=== PATIENT | female | born 1960 | race Caucasian/White ===

== ENCOUNTER 2016-02-25 12:10 | Emergency (ER) | payer SELFPAY ==
[~2016-02-25 12:10] MED LIST: ONDA4TAB7 PO
[2016-02-25 12:15] VITALS: BP 129/65
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
[2016-02-25] MEDS ORDERED: ACETAMINOPHEN 325 MG TABLET. PO ONE (13:45)
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
[2016-02-25 13:55] LABS: BASO # 0.2 x10^3/uL (0.0-0.2); BASO % 3 % (0-3); EOS % 1 % (0-3); HEMATOCRIT 41.9 % (36.0-47.0); HEMOGLOBIN 13.8 g/dL (12.0-15.5); LYMPH # 2.9 x10^3/uL (1.0-4.8); LYMPH % 50 % (24-48); MEAN CORPUSCULAR HEMOGLOBIN 32 pg (25-35); MEAN CORPUSCULAR HGB CONC 33 g/dL (31-37); MEAN CORPUSCULAR VOLUME 97 fL (79-100); MONO % 4 % (0-9); NEUT % 42 % (31-73); PLATELET COUNT 390 x10^3/uL (140-400); RED BLOOD COUNT 4.31 x10^6/uL (3.50-5.40); RED CELL DISTRIBUTION WIDTH 14.5 % (11.5-14.5); WHITE BLOOD COUNT 5.7 x10^3/uL (4.0-11.0)
[2016-02-25 14:30] LABS: CALCIUM 9.1 mg/dL (8.5-10.1); CREATININE 0.8 mg/dL (0.6-1.0); GFR 74.5
== END 2016-02-25 15:03 | disposition home or self-care (01) ==
LOC: ER 12:10
DX: F10.10 Alcohol abuse, uncomplicated (principal); I10 Essential (primary) hypertension; F32.9 Major depressive disorder, single episode, unspecified; F43.10 Post-traumatic stress disorder, unspecified; Y08.89XA Assault by other specified means, initial encounter; Y93.89 Activity, other specified; Y92.89 Other specified places as the place of occurrence of the external cause; Y99.8 Other external cause status
CPT/HCPCS: 36415; 70450; 72125; 80048; 85027; 99285; G0480

== ENCOUNTER 2016-05-05 19:51 | Emergency (ER) | payer BC, MEDICAID ==
[~2016-05-05] VITALS: Ht 175.3 cm; Wt 68.0 kg
[2016-05-05 20:00] VITALS: BP 129/67
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
[2016-05-05] MEDS ORDERED: ONDANSETRON PF 4 MG/2 ML VIAL. IV ONE (21:00)
[2016-05-05] MEDS ORDERED: IV NORMAL SALINE 1000ML BAG 1,000 ML IV SCH ×2 (21:00→23:00)
--- NOTE | 2016-05-05 21:10 | RAD ---
PROCEDURE CT head without contrast. HISTORY Headache after fall. TECHNIQUE Noncontrast CT head was obtained. One or more of the following individualized dose reduction techniques were utilized for this exam: 1. Automated exposure control. 2. Adjustment of the mA and/or kV according to patient's size. 3. Use of iterative reconstruction technique. COMPARISON November 19, 2015. FINDINGS The ventricles and sulci are within normal limits for age. There is no acute intracranial hemorrhage or extra-axial fluid collection. There is no mass effect or midline shift. Laureano-white differentiation is preserved. Minimal probable small-vessel ischemic disease is noted. There is a right frontal roslyn hole. The left maxillary sinus is opacified with wall sclerosis. IMPRESSION 1. No acute intracranial findings. 2. Chronic left maxillary sinusitis. Electronically signed by: Juan J Pickett MD (May 05, 2016 21:08:50)
[2016-05-05] MEDS ORDERED: METOCLOPRAMIDE HCL 10 MG/2 ML VIAL. IV ONE (22:00)
== END 2016-05-05 23:40 | disposition home or self-care (01) ==
LOC: ER 19:51
DX: R51 Headache (principal); F32.9 Major depressive disorder, single episode, unspecified; F43.10 Post-traumatic stress disorder, unspecified; J32.0 Chronic maxillary sinusitis; K21.9 Gastro-esophageal reflux disease without esophagitis; E05.90 Thyrotoxicosis, unspecified without thyrotoxic crisis or storm; F17.210 Nicotine dependence, cigarettes, uncomplicated; Z87.820 Personal history of traumatic brain injury; F10.10 Alcohol abuse, uncomplicated; Y90.9 Presence of alcohol in blood, level not specified; W10.9XXA Fall (on) (from) unspecified stairs and steps, initial encounter; Y93.89 Activity, other specified; Y92.89 Other specified places as the place of occurrence of the external cause; Y99.8 Other external cause status
CPT/HCPCS: 70450; 96361; 96374; 96375; 99285; J2405; J2765; J7030

== ENCOUNTER 2016-06-17 11:42 | Emergency (ER) | payer BC ==
[~2016-06-17] VITALS: Ht 172.7 cm; Wt 68.0 kg
--- NOTE | 2016-06-17 13:06 | RAD ---
Three-view study of the left ankle History: Pain after a fall. Comparison: June 09, 2014. Findings: A lateral metallic stabilizer plate and multiple screws are seen within the distal left fibula. 2 metallic screws are seen extending obliquely through the medial malleolus. The position of the metallic surgical hardware is unchanged from the previous study. No loosening and/or radiographic findings of infection is seen involving the surgical hardware. Old healed fractures of the medial malleolus and distal left fibula are seen. No acute appearing fracture is evident. The mortise ankle joint is intact. No osteolytic process is seen. IMPRESSION: No acute osseous abnormality is seen.
[2016-06-17] MEDS ORDERED: ONDANSETRON ODT 4 MG TAB.RAPDIS. PO ONE (13:15)
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
[2016-06-17] MEDS ORDERED: HYDR-971 PO (13:38)
== END 2016-06-17 13:45 | disposition home or self-care (01) ==
LOC: ER 11:42
DX: S93.402A Sprain of unspecified ligament of left ankle, initial encounter (principal); K21.9 Gastro-esophageal reflux disease without esophagitis; F43.10 Post-traumatic stress disorder, unspecified; F10.20 Alcohol dependence, uncomplicated; Z87.820 Personal history of traumatic brain injury; E05.90 Thyrotoxicosis, unspecified without thyrotoxic crisis or storm; W01.0XXA Fall on same level from slipping, tripping and stumbling without subsequent striking against object, initial encounter; Y93.89 Activity, other specified; Y99.8 Other external cause status; Y92.89 Other specified places as the place of occurrence of the external cause
CPT/HCPCS: 73610; 99284